=== PATIENT | female | born 2000 | race Caucasian/White ===

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

== ENCOUNTER → 2018-12-12 | Outpatient (CLI) | payer OTHER | LOC: M.LAB 16:16 | DX: Z13.83 Encounter for screening for respiratory disorder NEC (principal) ==

== ENCOUNTER 2019-05-20 11:18 | Emergency (ER) | payer OTHER ==
[~2019-05-20] VITALS: Ht 160 cm; Wt 88.5 kg
[2019-05-20] MEDS ORDERED: GLUMETZA500 PO (11:32)
[2019-05-20 11:42] LABS: URINE BILIRUBIN NEGATIVE (Negative); URINE BLOOD 1+ (Negative); URINE CLARITY SL CLOUDY; URINE COLOR YELLOW; URINE GLUCOSE-RANDOM NEGATIVE (Negative); URINE KETONES NEGATIVE (Negative); URINE LEUKOCYTES-REFLEX NEGATIVE (Negative); URINE NITRITE-REFLEX NEGATIVE (Negative); URINE PROTEIN TRACE (Negative); URINE SPECIFIC GRAVITY >= 1.030 (1.005-1.030); URINE UROBILINOGEN 0.2 E.U./dl (0.2-1.0)
[2019-05-20 11:54] LABS: SQUAMOUS >10 Many /LPF (0-3)
[2019-05-20 11:55] LABS: BACTERIA-REFLEX >30 Many /HPF (None Seen); CASTS None Seen /LPF (None Seen); CRYSTALS None Seen /LPF (None Seen); MUCUS >6 Heavy strn/LPF (None Seen); URINE RBC 3-10 Few /HPF (0-2); URINE WBC-REFLEX 0-5 Rare /HPF (0-5)
[2019-05-20] MEDS ORDERED: PYRIDIUM200 MG PO (12:29)
[2019-05-20 13:01] VITALS: BP 123/79
== END 2019-05-20 13:02 | disposition home or self-care (01) ==
LOC: M.ERS 11:18
PROVIDERS: Nurse Practitioner Family
DX: R30.0 Dysuria (principal)

== ENCOUNTER 2019-11-25 00:23 | Emergency (ER) | payer OTHER ==
[~2019-11-25] VITALS: Ht 160 cm; Wt 87.5 kg
[~2019-11-25 00:23] MED LIST changes: +GLUMETZA500 PO; +PYRIDIUM200 MG PO
[2019-11-25 02:20] VITALS: BP 140/94
--- NOTE | 2019-11-27 14:46 | EKG ---
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
== END 2019-11-25 02:21 | disposition home or self-care (01) ==
LOC: M.ERS 00:23
DX: R07.89 Other chest pain (principal); Z79.899 Other long term (current) drug therapy

== ENCOUNTER → 2019-12-08 | Outpatient (CLI) | payer OTHER ==
[2019-12-08 14:05] LABS: ABSOLUTE EOSINOPHILS 0.1 thou/uL (0.0-0.7); ABSOLUTE LYMPHOCYTES 2.2 thou/uL (0.8-5.3); ABSOLUTE MONOCYTES 0.4 thou/uL (0.0-1.2); ABSOLUTE NEUTROPHILS 3.1 thou/uL (1.6-8.1); BASOPHILS 0.6 %; EOSINOPHILS 1.4 %; HEMATOCRIT 42.6 % (37.0-47.0); HEMOGLOBIN 15.1 gm/dL (12.0-15.0); LYMPHOCYTES 37.5 %; MCH 32.1 pg (26.0-34.0); MCHC 35.4 g/dL (28.0-37.0); MCV 90.7 fL (80.0-100.0); MPV 8.1 fl. (7.2-11.1); NUCLEATED RBCS 0 /100WBC; PLATELET COUNT* 209 thou/uL (150-400); POLYS 53.5 %; WBC 5.8 thou/uL (4.0-11.0)
[2019-12-08 14:18] LABS: ALBUMIN 3.8 g/dL (3.4-5.0); ALKALINE PHOSPHATASE 91 U/L (46-116); ANION GAP 9 mmol/L (7-16); BUN 10 mg/dL (7-18); CALCIUM 8.7 mg/dL (8.5-10.1); CHLORIDE 104 mmol/L (98-107); CHOLESTEROL 237 mg/dL (<200); CO2 27 mmol/L (21-32); CREATININE 0.8 mg/dL (0.6-1.3); GLUCOSE 111 mg/dL (70-99); HDL CHOLESTEROL 43 mg/dL (>40); LDL CHOLESTEROL 172 mg/dL (<100); POTASSIUM 4.2 mmol/L (3.5-5.1); SERUM ASSESSMENT Clear; SGOT 43 U/L (15-37); SGPT 98 U/L (30-65); SODIUM 140 mmol/L (136-145); TC:HDL 5.5 Ratio (Not establshd); TOTAL BILIRUBIN 1.2 mg/dL (<0.1-1.0); TOTAL PROTEIN 7.7 g/dL (6.4-8.2); TRIGLYCERIDE 113 mg/dL (<150); VLDL 23 mg/dL (<40)
[2019-12-12 12:07] LABS: FREE TESTOSTERONE 3.3 pg/mL (0.0-4.2)
== END ==
LOC: M.LAB 13:42
PROVIDERS: ATTEND Nurse Practitioner Family
DX: R07.2 Precordial pain (principal)

== ENCOUNTER → 2019-12-12 | Outpatient (CLI) | payer OTHER ==
[2019-12-13 02:06] LABS: GLYCOHEMOGLOBIN (HGB A1C) 5.4 % (4.8-5.6)
[2019-12-13 09:08] LABS: HEPATITIS B SURFACE AG Negative (Negative)
== END ==
LOC: M.LAB 12:38
PROVIDERS: ATTEND Nurse Practitioner Family
DX: R94.5 Abnormal results of liver function studies (principal); R73.01 Impaired fasting glucose